=== PATIENT | male | born 1955 ===

== ENCOUNTER 2017-02-12 13:48 | Emergency (ER) | payer MEDICAID, OTHER ==
[2017-02-12] MEDS ORDERED: DIPHENHYDRAMINE 50 MG/ML VIAL ONE (14:09)
[2017-02-12] MEDS ORDERED: METHYLPREDNISOLONE SOD 125 MG/2 ML VIAL ONE (14:09)
[2017-02-12] MEDS ORDERED: C1 ESTERASE INHIBITOR 500 UNIT IV ONE ×2 (14:25→18:03)
[2017-02-12 14:50] LABS: BASOPHILS 0.5 % (0.0-2.0); EOSINOPHILS# 0.2 X 10^3uL (0.0-0.4); HEMOGLOBIN 13.9 g/dL (14.0-18.0); LYMPHOCYTES 21.7 % (20.0-40.0); LYMPHOCYTES# 2.1 X 10^3uL (0.8-3.8); MEAN CELL VOLUME 93.2 fL (80.0-100.0); MEAN CORPUS. HGB CONCENTRATION 34.7 g/dL (32.0-36.0); MEAN CORPUSCULAR HEMOGLOBIN 32.3 pg (29.0-35.0); MEAN PLATELET VOLUME 8.9 fL (7.4-10.4); MONOCYTES 6.5 % (2.0-10.0); MONOCYTES# 0.6 X 10^3uL (0.2-1.0); NEUTROPHILS 69.3 % (54.0-75.0); NEUTROPHILS# 6.6 X 10^3uL (2.6-6.7); PLATELET COUNT 225 X 10^3uL (130-440); RED BLOOD COUNT 4.29 X 10^6uL (4.20-6.10); RED CELL DISTRIBUTION WIDTH 12.9 % (11.5-14.5); WHITE BLOOD COUNT 9.5 X 10^3uL (3.9-10.7)
[2017-02-12 15:04] LABS: A/G RATIO 1.3; ALBUMIN 4.9 g/dL (3.5-5.0); ALKALINE PHOSPHATASE 69 U/L (38-126); ALT 24 U/L (21-72); AST 19 U/L (17-59); BILIRUBIN, TOTAL 0.9 mg/dL (0.2-1.3); BLOOD UREA NITROGEN 36 mg/dL (9-20); CALCIUM 10.3 mg/dL (8.4-10.2); CHLORIDE 106 mmol/L (98-107); EST GLOMERULAR FILTRATION RATE 36 mL/min; GLUCOSE 105 mg/dL (70-100); POTASSIUM 4.7 mmol/L (3.5-5.1); SODIUM 140 mmol/L (137-145); TOTAL PROTEIN 8.8 g/dL (6.3-8.2)
[2017-02-12 15:49] LABS: ABO GROUP TYPE B; ANTIBODY SCREEN NEGATIVE; RH TYPE POSITIVE
[2017-02-12] MEDS ORDERED: KETAMINE HCL 500 MG/10 ML VIAL ONE (18:10)
[2017-02-12] MEDS ORDERED: RACEPINEPHRINE 2.25% INHALATION ONE (18:13)
[2017-02-12] MEDS ORDERED: SODIUM CHLORIDE 0.9% 3 ML VIAL.NEB INHALATION ONE (18:15)
[2017-02-12] MEDS ORDERED: PHENYLEPHRINE 1% NASAL 15 SPRAYS/15 ML BTL NASAL ONE (18:43)
[2017-02-12] MEDS ORDERED: NORMAL SALINE 500 ML IV ONE (19:13)
--- NOTE | 2017-02-12 19:56 | ER NURSING DOCUMENTATION ---
Nurse's Notes [facility] Name:Alexandro Coronel Age:61 yrs Sex:Male :1955 Arrival Date:02/12/2017 Time:13:48 BedTrauma-B Private MD: Diagnosis:Angioedema Presentation: 02/12 14:02 Acuity: HOMAR 2 rh 14:05 Presenting complaint: Patient states: FOR 2 HOURS C/O GRADUAL TONGUE SWELLING. NO NEW MEDS OR FOODS TAKEN TODAY. HX OF SIMILAR EPISODE IN THE PAST 5 YEARS AGO. Transition of care: Home. Notified ED Physician of patient's arrival and CC. 14:05 Method Of Arrival: Private Vehicle Triage Assessment: 14:05 General: Appears distressed, Behavior is anxious, cooperative. Pain: Denies pain. lc Neuro: Level of Consciousness is awake, alert, Oriented to person, place, time, event. Respiratory: Airway is compromised DUE TO TONGUE SWELLLING Respiratory effort is even, labored, Respiratory pattern is regular, symmetrical, Breath sounds are clear bilaterally. Derm: Skin is pink, warm & dry. Historical: - Allergies: No known drug Allergies; - Home Meds: 1. Lisinopril Oral 2. Metformin Oral - PMHx: Diabetes - NIDDM; Hypertension; - PSHx: None; - Tetanus: < 10 years. - Ebola Screening: : Patient denies travel to an Ebola-affected area in the 21 days before illness onset. No symptoms or risks identified at this time. . - Immunization history: Flu Vaccine < 1 year. - Social history: Smoking status: Patient states was never smoker of tobacco. Screenin:53 Infectious Disease Risk None. Abuse screen: Denies threats or abuse. Denies injuries lc from another. Nutritional screening: No deficits noted. Assessment: 14:53 See Triage Assessment done by same RN. 14:58 Reassessment: TONGUE SWELLING SL BETTER, ABLE TO TAKE SIPS OF WATER AND SWALLOW. VSS. lc ALL MEDS IN. MONITOR IN NSR WITH RARE PVC NOW.. 16:12 Reassessment: Patient appears in no apparent distress at this time. VSS, SLEEPING OFF lc AND ON. TONGUE STILL SWOLLEN, BUT SL LESS. 17:40 Reassessment: No changes from previously documented assessment. DECISION MADE TO TRANSFER DUE TO NO REAL IMPROVEMENT.. 17:50 Reassessment: C/O TROUBLE SWALLOWING NOW, USED SUCTION TO CLEAR MOUTH, MEDS REPEATED. cody MAK AT BEDSIDE. 19:04 Reassessment: 1 UNIT OF FFP STARTED. 19:05 Reassessment: AWAITING FLIGHTS, ANESTHESIA HERE FOR POSSIBLE INTUBATION. STILL NEEDING lc TO USE SELF SUCTION. Vital Signs: 13:58 Pulse Ox 95% ; arc 14:00 BP 203 / 104 (auto/); arc 14:02 BP 203 / 104; Pulse 91; Resp 18; Temp 98.6(O); Pulse Ox 93% ; Weight 88.45 kg; Pain rh 0/10; 14:03 Pulse 91 MON; Resp 20; arc 14:13 Pulse 97 MON; Resp 16; Pulse Ox 98% ; arc 14:16 BP 186 / 81 (auto/); arc 14:28 Pulse 95 MON; Resp 16; Pulse Ox 96% ; arc 14:30 BP 169 / 76 (auto/); arc 15:15 BP 185 / 71 (auto/); lc 15:18 Pulse 92 MON; Resp 19; Pulse Ox 99% ; lc 16:00 BP 171 / 76 (auto/); lc 16:03 Pulse 87 MON; Resp 14; Pulse Ox 99% ; lc 16:30 BP 169 / 80 (auto/); lc 16:33 Pulse 86 MON; Resp 16; Pulse Ox 99% ; lc 17:00 BP 177 / 82 (auto/); lc 17:03 Pulse 88 MON; Resp 20; Pulse Ox 99% ; lc 18:15 BP 194 / 89 (auto/); lc 18:18 Pulse 100 MON; Resp 15; Pulse Ox 100% ; lc 18:43 Pulse 100 MON; Resp 18; Pulse Ox 100% ; lc 18:45 BP 201 / 101 (auto/); lc 19:10 BP 195 / 103 (auto/); lc 19:13 Pulse 99 MON; Resp 17; Pulse Ox 100% ; lc ED Course: 13:53 Patient arrived in ED. cj 14:02 Triage completed. rh 14:02 Notified ED Physician of patient's arrival and chief complaint. 14:03 Jl Cordova MD is Attending Physician. tl1 14:10 Labs drawn. (by ED staff). Sent per order to lab. Inserted peripheral IV: 20 gauge in right hand and blood collected. 14:11 Jennifer Castaneda, JIAN is Primary Nurse. 14:30 Oxygen Oxygen administration via nasal cannula FOR FREQUENT PVC'S. 14:53 Valuables Remains with patient Placed in gown. Bed in low position. Call light in lc reach. Side rails up X2. pvc monitor on. Pulse ox on. NIBP on. Head of bed elevated. 20:15 Other attached bw2 Administered Medications: Completed: NS 0.9% 1000 ml IV at bolus once 14:05 Drug: EPINEPHrine 1:1000 0.01 mg/kg; Route: IM; Site: left thigh; 14:39 Follow up: Response: No change in condition; 0.3 ml given 14:10 Drug: Benadryl 50 mg; Route: IVP; Site: right hand; 14:56 Follow up: Response: No change in condition 14:10 Drug: NS 0.9% 1000 ml; Route: IV; Rate: bolus; Site: right hand; 17:00 Follow up: IV Status: Completed infusion; IV Intake: 1000ml 14:13 Drug: Pepcid 20 mg; Route: IVPB; Infused Over: 10 mins; Site: right hand; 14:25 Follow up: IV Intake: 100ml 14:14 Drug: Solu-MEDROL 125 mg; Route: IVP; Infused Over: 5 mins; Site: right hand; 14:57 Follow up: Response: No change in condition 14:17 Drug: Berinert (PF) (35 ml) 2000 units IVP 2000 units; Volume: 35 ml; Route: IVP; lc Infused Over: 10 mins; Site: right hand; 14:41 CANCELLED (Duplicate Order): EPINEPHrine 1:1000 0.3 ml IM in left thigh once 14:41 CANCELLED (Duplicate Order): solumedrol 125 mg IVP once 14:41 CANCELLED (Duplicate Order): Benadryl 50 mg IVP once 14:41 CANCELLED (Duplicate Order): Pepcid 20 mg IVPB once 17:55 Drug: Berinert (PF) (35 ml) 2000 units IVP 2000 units; Volume: 35 ml; Route: IVP; Rate: lc bolus; Infused Over: 10 mins; Site: right hand; 18:58 Follow up: Response: No adverse reaction 18:58 Follow up: Response: No adverse reaction 18:03 Drug: Racepinephrine 0.5 ml; Route: Inhalation; lpr 18:57 Follow up: Response: No adverse reaction lc Intake: 14:25 IV: 100ml; Total: 100ml. lc 17:00 IV: 1000ml; Total: 1100ml. lc Outcome: 17:44 ER care complete, transfer ordered by . tl1 19:44 Transferred: Patient will be transferred to: [facility]. Facility lc Acceptance Time: February 12, 2017 at 18:45 Patient's face sheet was faxed to accepting facility. Face Sheet included patient's name, address, age, gender, contact information and insurance information. Patient will be transported by: [facility] Helicopter. Report called to: DEON VILLAR Nurse and Physician Charting and Notes were sent to Accepting Facility. All tests and/or procedures with results, if applicable, were sent to accepting facility. 19:44 critical 19:44 Discharge Assessment: AIRWAY PATENT, DECISION MADE TO NOT INTUBATE 19:44 Instructed on need for transfer EX AND BOSS CALLED 19:44 Critical Care visit due to AIRWAY OBSTRUCTION. 19:55 Patient left the ED. lc Signatures: Jennifer Castaneda RN RN Chayo Jean RN RN lpr Leigh, Tom, MD MD tl1 Lucía Wadsworth, Candy Canas, [facility]
--- NOTE | 2017-02-12 19:56 | ER PHYSICIAN DOCUMENTATION ---
Physician Documentation [facility] Name:Alexandro Coronel Age:61 yrs Sex:Male :1955 Arrival Date:02/12/2017 Time:13:48 BedTrauma-B Private MD: Jl Mazariegos Disposition: 02/12 21:49 Chart complete. tl1 Disposition: 02/12/17 17:44 Transfer ordered to [facility] [place]. Diagnosis is Angioedema. - Reason for transfer: Higher level of care. - Accepting physician is Penny Patino. - Condition is Good. - Problem is new. - Symptoms have improved. COBRA Form completed? Yes Transfer - Mode of Transportation Helicopter HPI: 13:55 This 61 yrs old Unknown Male presents to ER via Private Vehicle with complaints of tl1 Swelling Of Tongue. 13:55 The patient presents with tongue swelling. Onset: The symptom(s)/episode began/occurred tl1 gradually, 4 hour(s) ago. Modifying factors: The symptoms are alleviated by nothing, the symptoms are aggravated by nothing. He takes lisinopril. About 4 hours ago he noted tongue swelling that has now progressed to the point that he has trouble swallowing and his airway is feeling a little narrow, but he has no stridor or wheezing. He denies rash, itching, lightheadedness, n/v, abdominal pain. No f/c/s. He says he had a similar reaction about 15 years ago to a blood pressure medication.. Historical: - Allergies: No known drug Allergies; - Home Meds: 1. Lisinopril Oral 2. Metformin Oral - PMHx: Diabetes - NIDDM; Hypertension; - PSHx: None; - Tetanus: < 10 years. - Ebola Screening: : Patient denies travel to an Ebola-affected area in the 21 days before illness onset. No symptoms or risks identified at this time. . - Immunization history: Flu Vaccine < 1 year. - Social history: Smoking status: Patient states was never smoker of tobacco. ROS: 13:55 ENT: Positive for difficulty handling secretions, difficulty swallowing. tl1 13:55 All other systems are negative. Exam: 13:55 Constitutional: This is a well developed, well nourished patient who is awake, alert, tl1 and in no acute distress. Head/Face: Normocephalic, atraumatic. 13:55 Eyes: Pupils equal round and reactive to light, extra-ocular motions intact. Lids and tl1 lashes normal. Conjunctiva and sclera are non-icteric and not injected. Cornea within normal limits. Periorbital areas with no swelling, redness, or edema. 13:55 ENT: External ear(s): are unremarkable, Mouth: Lips: normal, Oral mucosa: normal, Tongue: is swollen, tender. 13:55 ENT: Dental exam: no acute changes. 13:55 Neck: External neck: is normal, Trachea: is midline with no obvious abnormalities, ROM/movement: is normal, Lymph nodes: 13:55 Cardiovascular: Rate: bradycardic, Rhythm: regular, Heart sounds: normal. 13:55 Respiratory: Respirations: normal, Breath sounds: are normal, no acute changes, rales, are not appreciated, rhonchi, are not appreciated, wheezing, is not appreciated, stridor, is not appreciated. 13:55 Abdomen/GI: Inspection: abdomen appears normal, Palpation: abdomen is soft and non-tender. 13:55 Skin: Exam negative for acute changes. 13:55 Neuro: Exam negative for acute changes, Orientation: is normal, appropriate for stated age, Mentation: is normal, Memory: is normal, Motor: moves all fours, Gait: not tested. Vital Signs: 13:58 Pulse Ox 95% ; arc 14:00 BP 203 / 104 (auto/); arc 14:02 BP 203 / 104; Pulse 91; Resp 18; Temp 98.6(O); Pulse Ox 93% ; Weight 88.45 kg; Pain rh 0/10; 14:03 Pulse 91 MON; Resp 20; arc 14:13 Pulse 97 MON; Resp 16; Pulse Ox 98% ; arc 14:16 BP 186 / 81 (auto/); arc 14:28 Pulse 95 MON; Resp 16; Pulse Ox 96% ; arc 14:30 BP 169 / 76 (auto/); arc 15:15 BP 185 / 71 (auto/); lc 15:18 Pulse 92 MON; Resp 19; Pulse Ox 99% ; lc 16:00 BP 171 / 76 (auto/); lc 16:03 Pulse 87 MON; Resp 14; Pulse Ox 99% ; lc 16:30 BP 169 / 80 (auto/); lc 16:33 Pulse 86 MON; Resp 16; Pulse Ox 99% ; lc 17:00 BP 177 / 82 (auto/); lc 17:03 Pulse 88 MON; Resp 20; Pulse Ox 99% ; lc 18:15 BP 194 / 89 (auto/); lc 18:18 Pulse 100 MON; Resp 15; Pulse Ox 100% ; lc 18:43 Pulse 100 MON; Resp 18; Pulse Ox 100% ; lc 18:45 BP 201 / 101 (auto/); lc 19:10 BP 195 / 103 (auto/); lc 19:13 Pulse 99 MON; Resp 17; Pulse Ox 100% ; lc MDM: 14:08 Patient medically screened. tl1 20:00 Data reviewed: vital signs, nurses notes, lab test result(s), CBC, electrolytes, tl1 hepatic panel, and as a result, I will *Transfer Patient. Counseling: I had a detailed discussion with the patient and/or guardian regarding: the historical points, exam findings, and any diagnostic results supporting the discharge/admit diagnosis, lab results, the need to transfer to another facility. Response to treatment: the patient's symptoms have mildly improved after treatment, and as a result, I will admit patient. ED course: There was initially no response to IM epi, solumedrol, benadryl and pepcid. Berinert was given with slight improvement in his speech and his subjective assessment of how he felt. I made arrangements to transfer him to [facility]. At that point his symptoms worsened. A second round of Berinert was unhelpfu. We prepared to intubate him if needed. He was then given FFP which produced a modest improvement in his symptoms and at that point I felt confident he would tolerate the Helicopter ride and he was transferred, to [facility], with Dr Mendes Lung accepting.. 20:15 Other attached bw2 02/12 15:00 Order name: CBC AUTO DIF, MDIF/RMOR IF IND; Complete Time: 21:49 EDMS 02/12 21:48 Interpretation: WHITE BLOOD COUNT 9.5; HEMOGLOBIN 13.9; HEMATOCRIT 40.0; PLATELET COUNT tl1 225. 02/12 15:06 Order name: COMPREHENSIVE METABOLIC PANEL; Complete Time: 21:49 EDMS 02/12 21:48 Interpretation: SODIUM 140; POTASSIUM 4.7; CHLORIDE 106; CARBON DIOXIDE 20; GLUCOSE tl1 105; BLOOD UREA NITROGEN 36; CREATININE 2.0; EST GLOMERULAR FILTRATION RATE 36; CALCIUM 10.3; TOTAL PROTEIN 8.8. 02/12 15:50 Order name: ABO GROUP; Complete Time: 21:49 EDMS 02/12 21:48 Interpretation: ABO GROUP TYPE B. [facility] 02/12 15:50 Order name: RH TYPE; Complete Time: 21:49 EDMS 02/12 21:48 Interpretation: RH TYPE POSITIVE. [facility] 02/12 15:50 Order name: ANTIBODY SCREEN; Complete Time: 21:49 EDMS 02/12 21:48 Interpretation: ANTIBODY SCREEN NEGATIVE. [facility] 02/12 14:04 Order name: Cardiac Monitoring - Continuous; Complete Time: 14:04 02/12 14:04 Order name: Pulse Ox Continuous; Complete Time: 14:04 02/12 14:04 Order name: Iv Saline Lock; Complete Time: 14:04 02/12 14:55 Order name: Oxygen; Complete Time: 14:56 02/12 19:03 Order name: FFP-Transfuse 2 units; Complete Time: 19:03 Dispensed Medications: Completed: NS 0.9% 1000 ml IV at bolus once 14:05 Drug: EPINEPHrine 1:1000 0.01 mg/kg; Route: IM; Site: left thigh; lc 14:39 Follow up: Response: No change in condition; 0.3 ml given 14:10 Drug: Benadryl 50 mg; Route: IVP; Site: right hand; lc 14:56 Follow up: Response: No change in condition 14:10 Drug: NS 0.9% 1000 ml; Route: IV; Rate: bolus; Site: right hand; lc 17:00 Follow up: IV Status: Completed infusion; IV Intake: 1000ml 14:13 Drug: Pepcid 20 mg; Route: IVPB; Infused Over: 10 mins; Site: right hand; lc 14:25 Follow up: IV Intake: 100ml lc 14:14 Drug: Solu-MEDROL 125 mg; Route: IVP; Infused Over: 5 mins; Site: right hand; lc 14:57 Follow up: Response: No change in condition 14:17 Drug: Berinert (PF) (35 ml) 2000 units IVP 2000 units; Volume: 35 ml; Route: IVP; lc Infused Over: 10 mins; Site: right hand; 14:41 CANCELLED (Duplicate Order): EPINEPHrine 1:1000 0.3 ml IM in left thigh once lc 14:41 CANCELLED (Duplicate Order): solumedrol 125 mg IVP once lc 14:41 CANCELLED (Duplicate Order): Benadryl 50 mg IVP once lc 14:41 CANCELLED (Duplicate Order): Pepcid 20 mg IVPB once lc 17:55 Drug: Berinert (PF) (35 ml) 2000 units IVP 2000 units; Volume: 35 ml; Route: IVP; Rate: lc bolus; Infused Over: 10 mins; Site: right hand; 18:58 Follow up: Response: No adverse reaction lc 18:58 Follow up: Response: No adverse reaction lc 18:03 Drug: Racepinephrine 0.5 ml; Route: Inhalation; lpr 18:57 Follow up: Response: No adverse reaction lc Signatures: Jennifer Castaneda RN RN Chayo Jean RN RN lpr Jl Cordova MD MD 1 Candy Thomas Beth 2
== END 2017-02-12 19:56 | disposition short-term general hospital (02) ==
LOC: ER 13:48
DX: T78.3XXA Angioneurotic edema, initial encounter (principal); R00.1 Bradycardia, unspecified; D64.9 Anemia, unspecified; I10 Essential (primary) hypertension; E11.9 Type 2 diabetes mellitus without complications; Z79.899 Other long term (current) drug therapy
CPT/HCPCS: 80053; 85025; 86850; 86900; 86901; 86927; 94640; 96361; 96372; 96374; 96375; 96376; 99285; J0171; J0597; J1200; J2930; J7040; P9017